=== PATIENT | male | born 1930 | race Caucasian/White ===

== ENCOUNTER 2017-11-29 09:31 | Observation (INO) ==
[2017-11-29] MEDS ORDERED: *HR* Metoprolol 5 MG/5 ML VIAL IVP ONE (10:02)
[2017-11-29 10:13] LABS: Basophils % 0.5 %; Eosinophils # 0.1 K/mcL (0.0-0.6); Eosinophils % 1.3 %; Hematocrit 25.7 % (37.5-50.1); Hemoglobin 7.9 g/dL (12.9-16.9); Immature Granulocytes % 0.6 % (0-4); Lymphocytes # 0.9 K/mcL (0.6-4.6); Lymphocytes % 10.7 %; Mean Corpuscular HGB Conc 30.7 g/dL (31.6-35.5); Mean Corpuscular Hemoglobin 27.9 pg (28.0-33.3); Mean Corpuscular Volume 90.8 fL (83.0-100.0); Mean Platelet Volume 9.1 fL (9.4-12.4); Monocytes # 0.8 K/mcL (0.0-1.3); Monocytes % 9.4 %; Neutrophils # 6.4 K/mcL (1.6-8.9); Platelet Count 187 K/mcL (140-400); Red Blood Count 2.83 M/mcL (4.19-5.50); Red Cell Distribution Width 15.3 % (11.5-14.5); Segmented Neutrophils % 77.5 %
[2017-11-29 10:19] LABS: INR 1.2; Prothrombin Time 13.2 Seconds (9.4-12.1)
[2017-11-29 10:21] LABS: Activated Partial Thrombo Time 28.4 Seconds (26.0-36.0)
[2017-11-29 10:26] LABS: Albumin 2.9 g/dL (3.5-5.7); Albumin/Globulin Ratio 0.9 (1.1-2.2); Bilirubin,Direct 0.1 mg/dL (0.0-0.2); Bilirubin,Indirect 0.2 mg/dL (0.0-1.2); Bilirubin,Total 0.3 mg/dL (0.3-1.0); Calcium 8.4 mg/dL (8.6-10.3); Globulin 3.3 g/dL (2.4-3.5); Potassium 3.2 mEq/L (3.5-5.1); Total Protein 6.2 g/dL (6.4-8.9)
--- NOTE | 2017-11-29 10:28 | Emergency Department Note ---
Disposition Clinical Impression: Severe uncontrolled hypertension, Chronic kidney disease, stage III (moderate) Acute CHF Qualifiers: Heart failure type: unspecified Qualified Code(s): I50.9 - Heart failure, unspecified Disposition: Admitted As Inpatient Condition: Good Referrals: Paul Gonzalez DO [Primary Care Provider] - Forms: ED Satisfaction Letter, Work/School Release Time of Disposition: 11:27 (Dr Tijerina) General Adult HPI - General Chief complaint: ED General Medical Stated complaint: Bilat pedal edema and hypertension Time Seen by Provider: 11/29/17 09:42 Source: patient, family, EMS Mode of arrival: EMS Limitations: no limitations Nursing Notes Reviewed: Yes Vital Signs Reviewed: Yes - History of Present Illness HPI Narrative: Patient presents to the ED after being seen by home health nurse with elevated blood pressure. The patient's blood pressure was over 200s. He states he is medically compliant. He has an associated increasing lower extremity edema along with exertional dyspnea for last week. The patient denies any chest pain , dizziness, syncope, abdominal pain, or changes in his bladder or bowel habits. He was recently admitted in September secondary to acute blood loss anemia from diverticular bleed versus AVM bleed with renal failure. Pt Subjective Complaint: Elevated blood pressure and shortness of breath. Onset (ago): week(s) (1) Pain Scale: 0 Consistency: Worsening Improves with: immobilization Worsens with: movement, other (Exertion) Associated symptoms: Reports: shortness of breath, weakness. Denies: confusion , chest pain, cough, diaphoresis, fever/chills, headaches, loss of appetite, malaise, nausea/vomiting, rash, seizure, syncope Treatments Prior to Arrival: none - Related Data Home Medications Medication Instructions Recorded Confirmed Multivit-Min/FA/Lycopen/Lutein 1 tab PO DAILY 10/03/17 11/29/17 [Centrum Silver Tablet] Oxybutynin Chloride [Ditropan Xl] 5 mg PO DAILY 10/07/17 11/29/17 Ketoconazole 2% CRM [Nizoral Cream] 1 appl TP DAILY 10/11/17 11/29/17 Iron,Carbonyl [Feosol] 45 mg PO TID 11/29/17 11/29/17 Previous Rx's Medication Instructions Recorded Doxazosin [Cardura] 2 mg PO AD #30 tablet 10/09/17 Artificial Tears SOLN [Akwa Tears] 1 drop BOTH EYES QID PRN bottle 10/18/17 Metoprolol [Lopressor] 25 mg PO BID 30 Days #60 tablet 10/18/17 Pantoprazole Sodium [Protonix] 40 mg PO BID 30 Days #60 tablet. 10/18/17 hydrALAZINE [HydrALAZINE] 25 mg PO Q8HR 30 Days #90 tablet 10/18/17 Allergies Allergy/AdvReac Type Severity Reaction Status Date / Time Erythromycin Base Allergy See Verified 10/11/17 13:23 Comments All systems ED: reviewed and negative except as stated. Past Medical History - Past Medical History Medical history: Reports: GI bleed, hypertension, renal disease, other Surgical history: Reports: herniorrhaphy, other Psychiatric history: Reports: no psych history - Social History Smoking Status: Never smoker Smokeless Tobacco Status: No Alcohol use: Reports: none Drug use: Reports: none Physical Exam - General Limitations: no limitations General appearance: alert, in no apparent distress - Head Head exam: atraumatic, normocephalic - Eye Eye exam: Present: normal appearance, PERRL, EOMI. Absent: scleral icterus, conjunctival injection - ENT ENT exam: mucous membranes moist - Neck Neck exam: Present: normal inspection, full ROM, trachea midline - Expanded Neck Exam Neck exam focused ED: Absent: JVD, carotid bruit - Chest Chest inspection: Present: normal inspection, symmetric chest wall rise. Absent : tenderness - Respiratory Respiratory exam: Present: normal lung sounds bilaterally. Absent: respiratory distress, wheezes, stridor - Expanded Respiratory Exam Location: rales: Lower, Right, Left - Cardiovascular Cardiovascular exam: Present: regular rate, normal rhythm, normal heart sounds - Abdominal Exam Abdominal exam: Present: soft, Non-Tender. Absent: normal bowel sounds - Expanded Lower Extremity Exam Lower leg exam: Present: normal inspection, full ROM. Absent: tenderness, swelling Ankle exam: Present: normal inspection, full ROM, swelling. Absent: tenderness Foot/toe exam: Present: swelling - Skin Skin exam: Present: warm, dry, intact. Absent: pallor Course - Reevaluation(s) Reevaluation #1: Stable ED course with labile blood pressure. The patient was given Lopressor with moderate improvement of his hypertension to 178 systolic. The patient denies any chest pain or shortness of breath at rest. Consultation was made with hospitalist who agrees to admit the patient for further treatment and evaluation. Time: 11:22 Vital Signs O2 Sat by Pulse Oximetry 92 11/29/17 09:35 Temperature 98.1 F 11/29/17 09:38 Pulse Rate 62 11/29/17 10:51 Respiratory Rate 21 11/29/17 10:51 Blood Pressure 178/93 11/29/17 10:51 O2 Sat by Pulse Oximetry 90 11/29/17 10:51 Oxygen Delivery Oxygen Delivery Room Air Medical Decision Making - MDM Narrative Medical decision making narrative: Uncontrolled hypertension myositis secondary to his chronic kidney disease with an associated acute CHF. The patient is not decompensated. He was given Lopressor for his blood pressure control and nitroglycerin glycerin transdermal to help alleviate with current pulmonary vascular congestion. I discussed the patient's presentation with hospitalist Dr. Tijerina, he will admit the patient for further treatment and evaluation. Patient and family are informed of current diagnostic and laboratory findings and are amenable to inpatient admission. - Medical Records Medical records reviewed: Yes I reviewed the patient's medical records. - Lab Data Lab results reviewed: Yes I reviewed the patient's lab results. Result diagrams: 11/29/17 10:00 11/29/17 10:00 Lab Results 11/29/17 11/29/17 11/29/17 Range/Units 10:00 10:00 10:00 WBC 8.2 (4.3-11.1) K/mcL RBC 2.83 L (4.19-5.50) M/mcL Hgb 7.9 L (12.9-16.9) g/dL Hct 25.7 L (37.5-50.1) % MCV 90.8 (83.0-100.0) fL MCH 27.9 L (28.0-33.3) pg MCHC 30.7 L (31.6-35.5) g/dL RDW 15.3 H (11.5-14.5) % Plt Count 187 (140-400) K/mcL MPV 9.1 L (9.4-12.4) fL Immature Gran % 0.6 (0-4) % Seg Neutrophils % 77.5 % Lymphocytes % 10.7 % Monocytes % 9.4 % Eosinophils % 1.3 % Basophils % 0.5 % Neutrophils # 6.4 (1.6-8.9) K/mcL Lymphocytes # 0.9 (0.6-4.6) K/mcL Monocytes # 0.8 (0.0-1.3) K/mcL Eosinophils # 0.1 (0.0-0.6) K/mcL Basophils # 0.0 (0.0-0.2) K/mcL PT 13.2 H (9.4-12.1) Seconds INR 1.2 APTT 28.4 (26.0-36.0) Seconds Sodium 140 (136-145) mEq/L Potassium 3.2 L (3.5-5.1) mEq/L Chloride 102 (98-107) mEq/L Carbon Dioxide 30 H (23-29) mEq/L BUN 21 (8-23) mg/dL Creatinine 2.01 H (0.70-1.30) mg/dL Est GFR ( Amer) 38 L (> 60) Est GFR (Non-Af Amer) 31 L (> 60) BUN/Creatinine Ratio 10 (6-26) Glucose 135 H (70-105) mg/dL Calculated Osmolality 295 (280-300) Calcium 8.4 L (8.6-10.3) mg/dL Total Bilirubin 0.3 (0.3-1.0) mg/dL Direct Bilirubin 0.1 (0.0-0.2) mg/dL Indirect Bilirubin 0.2 (0.0-1.2) mg/dL AST 28 (13-39) Units/L ALT 10 (7-52) Units/L Alkaline Phosphatase 108 H (34-104) Units/L B-Natriuretic Peptide (Less than 100) pg/mL Serum Total Protein 6.2 L (6.4-8.9) g/dL Albumin 2.9 L (3.5-5.7) g/dL Globulin 3.3 (2.4-3.5) g/dL Albumin/Globulin Ratio 0.9 L (1.1-2.2) 11/29/17 Range/Units 10:00 WBC (4.3-11.1) K/mcL RBC (4.19-5.50) M/mcL Hgb (12.9-16.9) g/dL Hct (37.5-50.1) % MCV (83.0-100.0) fL MCH (28.0-33.3) pg MCHC (31.6-35.5) g/dL RDW (11.5-14.5) % Plt Count (140-400) K/mcL MPV (9.4-12.4) fL Immature Gran % (0-4) % Seg Neutrophils % % Lymphocytes % % Monocytes % % Eosinophils % % Basophils % % Neutrophils # (1.6-8.9) K/mcL Lymphocytes # (0.6-4.6) K/mcL Monocytes # (0.0-1.3) K/mcL Eosinophils # (0.0-0.6) K/mcL Basophils # (0.0-0.2) K/mcL PT (9.4-12.1) Seconds INR APTT (26.0-36.0) Seconds Sodium (136-145) mEq/L Potassium (3.5-5.1) mEq/L Chloride (98-107) mEq/L Carbon Dioxide (23-29) mEq/L BUN (8-23) mg/dL Creatinine (0.70-1.30) mg/dL Est GFR ( Amer) (> 60) Est GFR (Non-Af Amer) (> 60) BUN/Creatinine Ratio (6-26) Glucose (70-105) mg/dL Calculated Osmolality (280-300) Calcium (8.6-10.3) mg/dL Total Bilirubin (0.3-1.0) mg/dL Direct Bilirubin (0.0-0.2) mg/dL Indirect Bilirubin (0.0-1.2) mg/dL AST (13-39) Units/L ALT (7-52) Units/L Alkaline Phosphatase (34-104) Units/L B-Natriuretic Peptide 815 H (Less than 100) pg/mL Serum Total Protein (6.4-8.9) g/dL Albumin (3.5-5.7) g/dL Globulin (2.4-3.5) g/dL Albumin/Globulin Ratio (1.1-2.2) - Radiology Data Radiology results reviewed: Yes I reviewed the patient's radiology results. Chest X-Ray 11/29/17 09:56 IMPRESSION: 1. Cardiomegaly with vascular congestion and interstitial infiltrates likely representing edema and congestive failure. D/ / Ramon Agee MD / Ramon Agee MD Interpreting Provider: Ramon Agee MD - EKG Data EKG #1 Rate: normal Rhythm: NSR [place]/QRS: normal Interpretation: normal EKG, nonspecific ST-T wave changes
[2017-11-29] MEDS ORDERED: Nitroglycerin 1 INCH/GM PACKET TP ONE (10:34)
[2017-11-29] MEDS ORDERED: Naloxone 0.4 MG/ML INJ IVP PRN ×2 (11:29→12:52)
[2017-11-29] MEDS ORDERED: Acetaminophen 325 MG TABLET PO PRN (11:29)
[2017-11-29] MEDS ORDERED: Ondansetron 4 MG/2 ML VIAL IVP PRN ×2 (11:29→12:52)
[2017-11-29] MEDS ORDERED: hydrALAZINE 25 MG TABLET PO ONE ×2 (12:29→12:52)
--- NOTE | 2017-11-29 16:20 | Internal Med History&Physical ---
Date of Encounter: 11/29/17 Time of Encounter: 15:45 Assessment and Plan (1) Severe uncontrolled hypertension Current visit: Yes Status: Acute He received labetalol in emergency room. I will restart metoprolol and Cardura. Hydralazine has been ordered. We will give IV Lasix. (2) Chronic kidney disease, stage III (moderate) Current visit: Yes Status: Acute We will monitor renal indices. (3) Anemia Current visit: No Status: Acute We will recheck iron status in a.m. Qualifiers: Anemia type: iron deficiency Iron deficiency anemia type: unspecified iron deficiency Qualified Code(s): D50.9 - Iron deficiency anemia, unspecified (4) Hypokalemia Current visit: Yes Status: Acute Etiology not obvious. Will give supplemental potassium and monitor labs. (5) Elevated brain natriuretic peptide (BNP) level Current visit: Yes Status: Acute Will order echocardiogram. IV Lasix has been started. Internal Medicine - H&P: HPI Chief complaint: Hypertension Admitted From: Emergency Dept Plans for Post Hospital Care: Home History of present illness: Mr. Martinez is a 87 year old male who was sent to emergency room by home health nurse after his blood pressure was found to be elevated with systolic reading of approximately 200. He was not having chest pain or headache at this time. He was evaluated in emergency room and found to have hypokalemia, hypertension and significant edema. He was admitted [facility] floor for ongoing care needs. He reports he was diagnosed with hypertension earlier this year. He was prescribed Lasix 40 mg daily earlier this week by his PCP. He denies a diagnosis of SD heart failure DVT or pulmonary embolus. He has not had stress test, heart cath, or echocardiogram. Past Med Surg Social Fam HX - Past Medical History Medical history: GI bleed, hypertension, renal disease, other Psychiatric history: no psych history - Past Surgical History Surgical History: herniorrhaphy, other - Social History Smoking Status: Never smoker Smokeless Tobacco Status: No Alcohol use: none Drug use: none - Family History Father Living Status: Mother Living Status: Internal Medicine - H&P: Meds Multivit-Min/FA/Lycopen/Lutein [Centrum Silver Tablet] 1 tab PO DAILY 10/03/17 [ History] Oxybutynin Chloride [Ditropan Xl] 5 mg PO DAILY 10/07/17 [History] Doxazosin [Cardura] 2 mg PO AD #30 tablet 10/09/17 [Rx] Ketoconazole 2% CRM [Nizoral Cream] 1 appl TP DAILY 10/11/17 [History] Artificial Tears SOLN [Akwa Tears] 1 drop BOTH EYES QID PRN bottle 10/18/17 [Rx ] Metoprolol [Lopressor] 25 mg PO BID 30 Days #60 tablet 10/18/17 [Rx] Pantoprazole Sodium [Protonix] 40 mg PO BID 30 Days #60 tablet. 10/18/17 [Rx] hydrALAZINE [HydrALAZINE] 25 mg PO Q8HR 30 Days #90 tablet 10/18/17 [Rx] Iron,Carbonyl [Feosol] 45 mg PO TID 11/29/17 [History] 3 Allergy/AdvReac Type Severity Reaction Status Date / Time Erythromycin Base Allergy See Verified 10/11/17 13:23 Comments All Systems PM: A 10-system review of systems was performed and is negative for pertinent findings except as documented above in the HPI. Review of systems: Gen.: He states his weight has been stable the past few months Cardiovascular: As per history of present illness Respiratory: He smoked from age [age] up to 1 pack per day. He denies chronic lung disease and does not use home oxygen GI: He denies disorders of his liver gallbladder or exocrine pancreas. He had GI bleed earlier this year felt to be due to NSAIDs. EGD revealed gastric erosions, gastric ulcer, erosive duodenopathy and nonbleeding angiodysplasia. : He has chronic kidney disease. He has BPH and was prescribed oxybutynin for overactive bladder. Neurologic: He denies large distribution strokes or seizures. Endocrine: He reports diet-controlled diabetes. Hemoglobin A1c was 6.0% 2016. He denies thyroid disease or hyperlipidemia Hematology/oncology: He has iron deficiency anemia and has been taking her iron replacement since September 2017. He denies internal malignancies. Psychiatric: Denies anxiety or depression of mental health issues [place] skeletal: He has chronic low back pain. He had a foot injury remotely. He denies gout or other bone joint or muscle disorders. - Constitutional Vitals: Temp Pulse Resp BP Pulse Ox 98.4 F 64 17 176/70 94 11/29/17 15:20 11/29/17 15:20 11/29/17 15:20 11/29/17 15:20 11/29/17 15:20 Exam: Gen.: He is a well-developed well-nourished male sitting in a chair at bedside who appears in no acute distress HEENT: Head is atraumatic and normocephalic. Eyes: EOMI. There is no scleral icterus. Mouth: Mucosa is moist. Neck: There is no thyromegaly or adenopathy noted. Heart: Regular without murmurs gallops or ectopics Lungs: No wheezes or crackles are heard. Abdomen: Soft and nontender. Exam is limited because he is in the seated position. Extremities: He has 3-4+ edema of his lower legs and feet bilaterally. Dorsalis pedis and posttibial pulses are not palpable. The edema extends to his dependent thigh area. Neurologic: Mental status: He is talkative and a good historian. Cranial nerves : Smile is symmetric. Forehead wrinkles bilaterally. Tongue protrudes midline. EOMI. Motor: There is no pronator drift. Cerebellar: Finger to nose is intact bilaterally. Skin: Warm and dry Internal Med - H&P Results - Labs CBC & Chem 7: 11/29/17 10:00 11/29/17 10:00
[2017-11-29] MEDS: Furosemide 40 MG/4 ML VIAL IVP SCH (16:34)
[2017-11-29] MEDS: Acetaminophen 325 MG TABLET PO PRN (20:42)
[2017-11-30 06:20] LABS: Basophils % 0.5 %; Eosinophils # 0.2 K/mcL (0.0-0.6); Hematocrit 25.7 % (37.5-50.1); Hemoglobin 7.9 g/dL (12.9-16.9); Immature Granulocytes % 0.4 % (0-4); Lymphocytes # 1.2 K/mcL (0.6-4.6); Lymphocytes % 15.2 %; Mean Corpuscular HGB Conc 30.7 g/dL (31.6-35.5); Mean Corpuscular Hemoglobin 27.8 pg (28.0-33.3); Mean Corpuscular Volume 90.5 fL (83.0-100.0); Mean Platelet Volume 9.6 fL (9.4-12.4); Monocytes # 0.7 K/mcL (0.0-1.3); Monocytes % 9.2 %; Neutrophils # 5.4 K/mcL (1.6-8.9); Platelet Count 188 K/mcL (140-400); Red Blood Count 2.84 M/mcL (4.19-5.50); Red Cell Distribution Width 15.4 % (11.5-14.5); Segmented Neutrophils % 71.7 %
[2017-11-30 06:41] LABS: Calcium 8.3 mg/dL (8.6-10.3); Magnesium 2.1 mg/dL (1.6-2.6); Potassium 3.2 mEq/L (3.5-5.1)
[2017-11-30] MEDS: Acetaminophen 325 MG TABLET PO PRN ×2 (06:57→15:48)
[2017-11-30] MEDS: Furosemide 40 MG/4 ML VIAL IVP SCH ×2 (08:17→15:49)
--- NOTE | 2017-11-30 12:37 | Electrocardiograph Report ---
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
--- NOTE | 2017-11-30 16:14 | Internal Med Progress Note ---
Date of Encounter: 11/30/17 Time of Encounter: 16:00 - Assessment and plan (1) Severe uncontrolled hypertension Current Visit: Yes Status: Acute Assessment and plan: November 30. Still poorly controlled. Will add clonidine and increase Cardura. Continue present dose Lopressor and Lasix. (2) Chronic kidney disease, stage III (moderate) Current Visit: Yes Status: Acute Assessment and plan: November 30. Continue to monitor renal indices. (3) Anemia Current Visit: No Status: Acute Assessment and plan: November 30. Iron studies show iron 25, transferrin saturation 10%, transferrin 175. Will order ferritin and start oral ferrous sulfate with vitamin C. Qualifiers: Anemia type: iron deficiency Iron deficiency anemia type: unspecified iron deficiency Qualified Code(s): D50.9 - Iron deficiency anemia, unspecified (4) Hypokalemia Current Visit: Yes Status: Acute Assessment and plan: November 30. Potassium level unchanged at 3.2. Will increase potassium supplement and monitor labs. (5) Elevated brain natriuretic peptide (BNP) level Current Visit: Yes Status: Acute Assessment and plan: November 30. Improved to 495. Continue present regimen and add isosorbide.. - Subjective Interval history: November 30. He has no new complaints and feels better. - Constitutional Vitals: Temp Pulse Resp BP Pulse Ox 98.0 F 70 18 184/86 98 11/30/17 14:35 11/30/17 14:35 11/30/17 14:35 11/30/17 14:35 11/30/17 14:35 Exam: He is resting comfortably in bed and appears in no acute distress. His legs edema has lessened slightly bilaterally. He has no presacral edema. His affect is bright and cheerful. I reviewed his medications and lab results. I reviewed his echocardiogram report. Internal Medicine: Result - Labs CBC & Chem 7: 11/30/17 05:34 11/30/17 05:34 Labs: Short CBC 11/30/17 Range/Units 05:34 WBC 7.6 (4.3-11.1) K/mcL Hgb 7.9 L (12.9-16.9) g/dL Hct 25.7 L (37.5-50.1) % Plt Count 188 (140-400) K/mcL Neutrophils # 5.4 (1.6-8.9) K/mcL BMP 11/30/17 05:34 Sodium 141 Potassium 3.2 L Chloride 103 Carbon Dioxide 29 BUN 24 H Creatinine 2.22 H Glucose 110 H Calcium 8.3 L - ABG Interpretation ABG results: PT/INR, D-dimer PT 13.2 Seconds (9.4-12.1) H 11/29/17 10:00 - Impressions Impressions Echocardiogram 11/29/17 16:11 Impressions: Hypertensive at time of study, BP 197/82 mmHg. LVEF 55%. Mild left ventricular diastolic dysfunction. Normal right ventricular structure and function. Mild mitral regurgitation. Borderline mild pulmonary hypertension. There is a small pericardial effusion present largest along inferior border of RV. There is no echocardiographic evidence of tamponade. Left Ventricular Wall Motion: Rest Echo Findings All wall segments showed normal motion. Findings: Study Quality * Technically adequate exam. ECG Findings * Normal sinus rhythm. Left Ventricle * LVEF 55%. * Normal LV chamber size, wall thickness and function. * Mild left ventricular diastolic dysfunction. Right Ventricle * Normal right ventricular structure and function. Left Atrium * Normal left atrial size. Right Atrium * Normal right atrial size. Mitral Valve * Normal mitral valve structure. * No mitral stenosis. * Mild mitral regurgitation. Aortic Valve * No aortic regurgitation. * Aortic valve not well visualized. * No aortic stenosis. Tricuspid Valve * Normal tricuspid valve structure. * Trace tricuspid regurgitation. * Estimated RA pressure is 15 mmHg. * Estimated RVSP is 35 mmHg. * Borderline mild pulmonary hypertension. Pulmonic Valve * Pulmonic valve is not well visualized. * No pulmonic stenosis. * No pulmonic regurgitation. Pulmonary Artery * Pulmonary artery not well visualized. Aorta * Normally sized aortic root. Pericardium * There is a small pericardial effusion present. * There is no echocardiographic evidence of tamponade. Interatrial Septum * No evidence of PFO by color Doppler. IVC * The IVC is dilated. * < 50% respiratory change. Consult Discharge Plan - Plan Referrals: Paul Gonzalez DO [Primary Care Provider] - 1 week
[2017-11-30] MEDS: Isosorbide MONOnitrate (24 HR) 30 MG TAB.ER.24H PO SCH (18:04)
[2017-11-30] MEDS: cloNIDine HCl 0.1 MG TABLET PO SCH ×2 (18:04→19:55)
[2017-11-30] MEDS: Acetaminophen 325 MG TABLET PO SCH ×2 (23:19)
[2017-12-01] MEDS: Acetaminophen 325 MG TABLET PO SCH ×2 (05:58→12:17)
[2017-12-01 06:12] LABS: Calcium 8.3 mg/dL (8.6-10.3); Potassium 3.4 mEq/L (3.5-5.1)
[2017-12-01] MEDS ORDERED: Ascorbic Acid 500 MG TABLET PO SCH (06:30)
[2017-12-01 06:50] VITALS: BP 186/85
[2017-12-01] MEDS: Furosemide 40 MG/4 ML VIAL IVP SCH (08:21)
[2017-12-01] MEDS: Isosorbide MONOnitrate (24 HR) 30 MG TAB.ER.24H PO SCH (08:22)
[2017-12-01] MEDS: cloNIDine HCl 0.1 MG TABLET PO SCH (08:22)
--- NOTE | 2017-12-01 10:11 | Discharge Summary ---
Orders not resulted at time of discharge: Pending orders 12/01/17 05:03 Basic Metabolic Panel AM 0400 Ferritin AM 0400 Date of Encounter: 12/01/17 Time of Encounter: 09:50 - Discharge Diagnosis (1) Severe uncontrolled hypertension Priority: Primary Status: Acute (2) Diastolic heart failure Priority: Secondary Status: Acute Qualifiers: Heart failure chronicity: chronic Qualified Code(s): I50.32 - Chronic diastolic (congestive) heart failure (3) Chronic kidney disease, stage III (moderate) Priority: Secondary Status: Acute (4) Anemia Priority: Secondary Status: Acute Qualifiers: Anemia type: iron deficiency Iron deficiency anemia type: unspecified iron deficiency Qualified Code(s): D50.9 - Iron deficiency anemia, unspecified (5) Hypokalemia Priority: Secondary Status: Acute Hospital course: Mr. Martinez is a 87 year old male who was sent to emergency room by home health nurse after his blood pressure was found to be elevated with systolic reading of approximately 200. He was not having chest pain or headache at this time. He was evaluated in emergency room and found to have hypokalemia, hypertension and significant edema. He was admitted to [facility] floor for ongoing care needs. Initial orders were written by emergency room physician. I saw him on November 29 and performed the history and physical. He was given higher dose Cardura and his blood pressure improved. Metoprolol and hydralazine were continued. He was given IV Lasix for edema. Echocardiogram showed LVEF of 55% with mild LV diastolic dysfunction and mild mitral regurgitation. He had significant improvement in leg edema and was able to ambulate with a walker. BN peptide decreased to 446 by day of discharge. Supplemental potassium was given and the potassium level eleazar to 3.4 by day of discharge. A 7 day prescription for KCl was given at discharge. His PCP can monitor labs and adjust dose as needed. Anemia testing showed iron 25, transferrin saturation 10%, transferrin 175. He will continue his home iron supplement and be given vitamin C. He will follow with his PCP Dr. Gonzalez within 1 week. - Time Spent with Patient Total time spent providing and/or coordinating discharge services: - Discharge Medications Prescriptions: Ascorbic Acid [Vitamin C] 500 mg PO 0630 #30 tablet Doxazosin [Cardura] 8 mg PO HS #60 tablet Furosemide [Lasix] 40 mg PO DAILY #30 tablet Isosorbide MONOnitrate (24 HR) [Imdur] 60 mg PO DAILY #30 tab.er.24h Potassium Chloride 20 meq PO BID #14 tab.er.prt Home Medications: Multivit-Min/FA/Lycopen/Lutein [Centrum Silver Tablet] 1 tab PO DAILY 10/03/17 [ History] Ketoconazole 2% CRM [Nizoral Cream] 1 appl TP DAILY 10/11/17 [History] Artificial Tears SOLN [Akwa Tears] 1 drop BOTH EYES QID PRN bottle 10/18/17 [Rx ] Metoprolol [Lopressor] 25 mg PO BID 30 Days #60 tablet 10/18/17 [Rx] Pantoprazole Sodium [Protonix] 40 mg PO BID 30 Days #60 tablet.dr 10/18/17 [Rx] hydrALAZINE [HydrALAZINE] 25 mg PO Q8HR 30 Days #90 tablet 10/18/17 [Rx] Iron,Carbonyl [Feosol] 45 mg PO TID 11/29/17 [History] Ascorbic Acid [Vitamin C] 500 mg PO 0630 #30 tablet 12/01/17 [Rx] Doxazosin [Cardura] 8 mg PO HS #60 tablet 12/01/17 [Rx] Furosemide [Lasix] 40 mg PO DAILY #30 tablet 12/01/17 [Rx] Isosorbide MONOnitrate (24 HR) [Imdur] 60 mg PO DAILY #30 tab.er.24h 12/01/17 [ Rx] Potassium Chloride 20 meq PO BID #14 tab.er.prt 12/01/17 [Rx] Allergies/Adverse Reactions: 3 Allergy/AdvReac Type Severity Reaction Status Date / Time Erythromycin Base Allergy See Verified 10/11/17 13:23 Comments Date of admission: 11/29/17 12:30 Primary care physician: Paul Gonzalez Consults: 11/29/17 13:48 Consult to Packing Machine Inspector [CONS] Routine Reason for SW Consult: Discharge planning - Constitutional Vitals: Temp Pulse Resp BP Pulse Ox 97.5 F L 62 16 186/85 95 12/01/17 06:49 12/01/17 06:49 12/01/17 06:49 12/01/17 06:49 12/01/17 06:49 - Patient Status Disposition: Home Health Service Condition: Good Functional capacity at discharge: uses cane/walker Overall status at discharge: patient is progressing back to baseline - Discharge Instructions Follow Up With: Paul Gonzalez DO [Primary Care Provider] - 1 week - Diet and Activity Activity: resume usual activities as tolerated Diet: advance to your usual diet
== END 2017-12-01 13:40 | disposition home health service (06) ==
LOC: INPPIK 09:31 → EMEROOPIK 09:31 → INPPIK 12:51
PROVIDERS: ADMIT Internal Medicine; ATTEND Internal Medicine